=== PATIENT | female | born 1965 | race Caucasian/White ===

== ENCOUNTER → 2019-03-18 | Day surgery (SDC) | payer BC ==
[~2019-03-18] MED LIST: 0.9 % SODIUM CHLORIDE 10 ML VIAL ONE; ACETAMINOPHEN 325 MG TABLET PO PRN; ALBUTEROL SULFATE 2.5 MG/3 ML NEBU. NEB PRN; ARIP5TAB13 PO; ATROPINE 0.5 MG/5 ML DISP.SYRIN. IV PRN; BENZ1TAB5 PO; BUPIVACAINE MPF 0.5% 30 ML VIAL. ONE; CLON0.5T4 PO; ESCITALOPRAM OX20 MG PO; HYDROcodone/APAP 5/325MG 1 TAB TABLET ONE; HYDROcodone/APAP 5/325MG 1 TAB TABLET PO ONE; IBUP200T44 PO; IV RINGERS SOLUTION,LACTATED 1,000 ML IV SCH; LIDOCAINE 1% Multi-Dose 20 ML VIAL. ONE; LIDOCAINE 1% PF 30 ML VIAL. ONE; LISI10TA2 PO; MIDAZOLAM HCL PF 2 MG/2 ML VIAL. IV PRN; MIDAZOLAM HCL PF 2 MG/2 ML VIAL. ONE; ONDANSETRON PF 4 MG/2 ML VIAL. IV PRN; OXCA600T3 PO; PHENOL ORAL SPRAY 177ML BOTTLE. MM PRN; PROPOFOL 10,000 MCG/ML (20ML) VIAL IV ONE; QUET300T5 PO; SUCCINYLCHOLINE 200 MG/10 ML VIAL. ONE; ceFAZolin SODIUM 1 GM VIAL ONE; diphenhydrAMINE 50 MG/ML VIAL IV PRN
--- NOTE | 2019-03-18 12:12 | DISCH ---
DISCHARGE INSTRUCTIONS-DC Condition on Discharge Condition on Discharge: Stable Activity after Discharge Activity Instructions for Disc: Other ROM activity Other activity instructions: wiggle fingers Bathing Instructions: Shower-keep dressing dry Driving Instructions after Dis: Do not drive today Weight Bearing Status after Di: As tolerated Diet after Discharge Diet after Discharge: Regular Wound/Incision Care Wound/Incision Care: Ice to area for comfort, Keep wound/cast CDI, Keep wound elevated, Change dressing Other wound/incision instructi: ok to change dressing after 2 days, keep incision covered Contacting the DR. after DC Call your doctor for: Concerns you may have Follow-Up Follow up with: Eric in 2wks Treatment/Equipment after DC Adaptive Equipment Issued: None RIYA RAMOS II, MD Mar 18, 2019 12:12
--- NOTE | 2019-03-18 13:00 | PDOC ---
BRIEF OPERATIVE NOTE Date: Mar 18, 2019 Pre-Op Diagnosis R CTS Post-Op Diagnosis same Procedure Performed Open R CTR Surgeon Eric Anesthesia Type: Regional Additional Remarks Date of procedure: 03/18/2019 Surgeon: Casey Ramos Preoperative diagnosis: Right carpal tunnel syndrome Postoperative diagnosis: Same Procedure performed: Open right carpal tunnel release Anesthesia: Foster block with sedation Findings: normal appearing median nerve Blood loss: 3 ml Tourniquet time: 22 minutes Complications: none Reason for procedure: Patient is very pleasant individual who has had long- standing symptoms consistent with their electromyographically proven EMG diagnosis of carpal tunnel syndrome. We had tried and failed conservative therapies and had a discussion of the risks, benefits, alternatives to the above surgery and they wished to proceed. Description of procedure: Patient was greeted in the preoperative area by myself for the correct extremity was verified and marked. They were then taken back to the operative suite, antibiotics were started as they were brought back. Once in the operating room, patient was transferred gently supine to the operating room table. The hand board attached and was applied to the operating room table. She underwent successful induction of a [place] block followed by sedation. The right upper extremity was then prepped and draped in our usual sterile fashion and we conducted our standard preoperative timeout. After this, I made an incision over the transverse carpal ligament from the distal wrist crease into the palm through a palmar crease. I incised skin with a scalpel and dissected subcutaneous tissue with a curved hemostat. I used bipolar cautery for hemostasis. Identified the palmar fascia and incised this in line with the skin incision and then placed myself retaining retractor. I identified the transverse carpal ligament and incised this with a scalpel. I then placed a Ragnell retractor in the distal portion of the incision, spread above and below small remaining portion of the transverse carpal ligament and transected this with a tenotomy scissors into the palm. After this, I repeated this maneuver and an ulnar directed fashion to release the distal antebrachial fascia at the proximal portion of the incision. I then palpated along the course of the median nerve with the tip of the tenotomies to help ensure that accomplished a complete release. The operative field was then irrigated out with sterile saline. After this, skin was closed with 2-0 nylon in a mattress fashion. A sterile bulky soft dressing was then applied to the patients hand and wrist. The tourniquet was let down, hemostasis had been achieved with bipolar electrocautery. Patient tolerated surgery well. No complications. At the conclusion, they were awakened and transferred gently supine to the recovery room cart and taken to the PACU in a stable and extubated condition. Postoperative plan is to discharge patient home. Frequent range of motion at digits and wrist was encouraged. The patient was instructed not to lift anything heavy. We will see her back in 2 weeks, sooner should a problem arise. CASEY RAMOS II, MD Mar 18, 2019 13:00
[2019-03-18 13:15] VITALS: BP 159/98
== END | disposition home or self-care (01) ==
LOC: SURG 10:37
PROVIDERS: ATTEND Orthopaedic Surgery Sports Medicine
DX: G56.01 Carpal tunnel syndrome, right upper limb (principal); F31.9 Bipolar disorder, unspecified; F17.210 Nicotine dependence, cigarettes, uncomplicated; Z79.899 Other long term (current) drug therapy; Z98.890 Other specified postprocedural states; Z90.710 Acquired absence of both cervix and uterus; Z72.89 Other problems related to lifestyle
CPT/HCPCS: 64721; J0690; J2001; J2250; J2704; J3010; J3490; J7120